=== PATIENT | female | born 1990 | race African-American/Black ===

== ENCOUNTER 2023-12-05 18:13 | Emergency (ER) | payer MEDICAID, OTHER ==
[~2023-12-05] VITALS: Ht 167.6 cm; Wt 113.4 kg
[2023-12-05 18:22] VITALS: BP 178/92; PULSE 88; RESP 16; TEMP 98.2; O2SAT 100
[2023-12-05] MEDS ORDERED: SULF1TAB48 MT (19:44)
[2023-12-05] MEDS ORDERED: ACET-2708 PO (19:44)
[2023-12-05] MEDS ORDERED: AMOX1TAB16 MT (19:44)
== END 2023-12-05 21:51 | disposition home or self-care (01) ==
LOC: ER 18:13
DX: N61.1 Abscess of the breast and nipple (principal); Z98.890 Other specified postprocedural states
CPT/HCPCS: 99283